=== PATIENT | male | born 1975 | race Two or more races ===

== ENCOUNTER 2024-10-04 05:18 | Day surgery (SDC) | payer OTHER ==
[2024-10-02 13:35] VITALS: BMI 29.5
[2024-10-04] MEDS ORDERED: ACETAMINOPHEN 500 MG TABLET (FP) PO PRN (08:38)
[2024-10-04 14:27] VITALS: RESP 18; TEMP 97.7
[2024-10-04] MEDS: LIDOCAINE HCL 1% PRESERVATIVE FREE - 30ML VIAL IJ ONE ×2 (15:16)
[2024-10-04] MEDS: IOHEXOL 180 MG/1 ML ML IJ ONE ×2 (15:17)
[2024-10-04] MEDS: DEXAMETHASONE SOD PHOSPHATE 10 MG/1 ML VIAL IM ONE ×2 (15:18)
[2024-10-04 16:10] VITALS: BP 120/67; PULSE 62
== END 2024-10-04 15:50 | disposition home or self-care (01) ==
LOC: JASU-SURG 05:18
PROVIDERS: ATTEND Pain Medicine Pain Medicine
PROC: 3E0R3BZ Introduction of Anesthetic Agent into Spinal Canal, Percutaneous Approach (ICD-10-PCS; 2024-10-04)
PROC: 3E0R33Z Introduction of Anti-inflammatory into Spinal Canal, Percutaneous Approach (ICD-10-PCS; principal; 2024-10-04 16:00)
DX: M48.061 Spinal stenosis, lumbar region without neurogenic claudication (principal); M54.16 Radiculopathy, lumbar region
CPT/HCPCS: 76000-TC-FY; J1100

== ENCOUNTER 2024-11-21 05:11 | Day surgery (SDC) | payer OTHER ==
[2024-11-19 13:30] VITALS: BMI 29.5
[2024-11-21] MEDS ORDERED: ACETAMINOPHEN 500 MG TABLET (FP) PO PRN (08:28)
[2024-11-21 15:55] VITALS: RESP 18
[2024-11-21 17:08] VITALS: BP 119/66; PULSE 73; TEMP 97.9
== END 2024-11-21 16:10 | disposition home or self-care (01) ==
LOC: JASU-SURG 05:11
PROVIDERS: ATTEND Pain Medicine Pain Medicine
PROC: 3E0T3BZ Introduction of Anesthetic Agent into Peripheral Nerves and Plexi, Percutaneous Approach (ICD-10-PCS; principal; 2024-11-21 11:45)
DX: M47.816 Spondylosis without myelopathy or radiculopathy, lumbar region (principal)
CPT/HCPCS: 76000-TC-FY